=== PATIENT | female | born 1945 | race Caucasian/White ===

== ENCOUNTER 2017-10-23 13:43 | Emergency (ER) | payer MEDICARE ==
[~2017-10-23] VITALS: Ht 162.6 cm; Wt 65.0 kg
[2017-10-23 14:11] VITALS: BP 145/65; PULSE 60; RESP 16; TEMP 97.3; O2SAT 100
[2017-10-23] MEDS ORDERED: ONDANSETRON HCL 4 MG/2 ML VIAL IVP ONE (16:00)
[2017-10-23] MEDS ORDERED: MORPHINE SULFATE 4 MG/ML INJ IV PUSH ONE (16:00)
[2017-10-23] MEDS ORDERED: SODIUM CHLORIDE 0.9% FLUSH 10 ML FLUSH IV FLUSH PRN (16:00)
--- NOTE | 2017-10-23 16:37 | RADRPT ---
EXAM DATE/TIME: 10/23/2017 16:18 [facility] COMPARISON: No previous studies available for comparison. INDICATIONS : Left hand pain post fall MEDICAL HISTORY : None. SURGICAL HISTORY : None. ENCOUNTER: Initial ACUITY: 1 day PAIN SCORE: 7/10 LOCATION: Left hand FINDINGS: Three view examination of the left hand demonstrates no soft tissue swelling, dislocation, or fractur e. The carpal bones appear intact. The interphalangeal and metacarpophalangeal joints are intact. Bony mineralization is decreased. CONCLUSION: Osteopenia. No acute bony abnormality. Nirmal Nicholas MD on October 23, 2017 at 16:33 Board Certified Radiologist. This report was verified electronically.
--- NOTE | 2017-10-23 16:38 | RADRPT ---
EXAM DATE/TIME: 10/23/2017 16:14 [facility] COMPARISON: No previous studies available for comparison. INDICATIONS : Left shoulder pain MEDICAL HISTORY : None. SURGICAL HISTORY : None. ENCOUNTER: Initial ACUITY: 1 day PAIN SCORE: 9/10 LOCATION: Left shoulder FINDINGS: Two view examination of the left shoulder demonstrates a mildly displaced fracture through the mindy l neck extending into the greater tuberosity. There is a shoulder joint effusion with mild subluxatio n inferiorly. CONCLUSION: 1. Mildly displaced proximal humeral fracture as above with shoulder joint effusion and mild subluxat ion. Nirmal Nicholas MD on October 23, 2017 at 16:35 Board Certified Radiologist. This report was verified electronically.
--- NOTE | 2017-10-23 16:46 | RADRPT ---
EXAM DATE/TIME: 10/23/2017 16:34 [facility] COMPARISON: No previous studies available for comparison. INDICATIONS : Head pain due to fall. RADIATION DOSE: 34.90 CTDIvol (mGy) MEDICAL HISTORY : None SURGICAL HISTORY : None. ENCOUNTER: Initial ACUITY: 1 day PAIN SCALE: 7/10 LOCATION: Bilateral cranial TECHNIQUE: Multiple contiguous axial images were obtained of the head. Using automated exposure control and adj ustment of the mA and/or kV according to patient size, radiation dose was kept as low as reasonably a chievable to obtain optimal diagnostic quality images. DICOM format image data is available electro nically for review and comparison. FINDINGS: CEREBRUM: The ventricles are normal for age. No evidence of midline shift, mass lesion, hemorrhage or acute in farction. No extra-axial fluid collections are seen. POSTERIOR FOSSA: The cerebellum and brainstem are intact. The 4th ventricle is midline. The cerebellopontine angle i s unremarkable. EXTRACRANIAL: The visualized portion of the orbits is intact. SKULL: The calvaria is intact. No evidence of skull fracture. CONCLUSION: 1. No acute intracranial abnormalities. Previous right craniotomy. Nirmal Nicholas MD on October 23, 2017 at 16:43 Board Certified Radiologist. This report was verified electronically.
--- NOTE | 2017-10-23 17:02 | PD ---
HPI Chief Complaint: Fall Time Seen by Provider: 15:49 Travel History International Travel<30 days: No Contact w/Intl Traveler<30days: No Traveled to known affect area: No History of Present Illness HPI 72-year-old female presents to the emergency department after tripping on a curb today. She is complaining of left shoulder pain, left hand pain, right wrist pain, and forehead pain. Admits hitting her left forehead and denies loss of consciousness. Denies neck pain or back pain. Has been ambulatory since after the fall. Denies confusion, disorientation, change in mentation, slurred speech, focal deficits or weakness. Denies chest pain, shortness of breath, abdominal pain, nausea, vomiting. Denies anticoagulant therapy. Has not taken any medication or tried any treatments to alleviate her symptoms. Rates pain 2/10 while at rest. Pain 10/10 with movement of the left shoulder. Aggravated with movement. Better at rest. No known allergies. Primary care provider is in [place], [place]. History of hypertension. Has no other medical complaints. No other modifying factors or associated signs and symptoms. PFSH Past Medical History Hypertension: Yes Past Surgical History Other Surgery: Yes (brain surgery for dvt) Social History Alcohol Use: No Tobacco Use: No Substance Use: No Allergies-Medications (Allergen,Severity, Reaction): Coded Allergies: No Known Allergies (Unverified , 10/23/17) Reported Meds & Prescriptions Reported Meds & Active Scripts Active Ibuprofen 800 Mg Tab 800 Mg PO Q6HR PRN Weare (Hydrocodone-Acetaminophen) 5 Mg-325 Mg Tab 1 Tab PO Q4H PRN Reported Losartan (Losartan Potassium) 50 Mg Tab 50 Mg PO DAILY Metoprolol Tartrate 50 Mg Tab 50 Mg PO BID Levothyroxine (Levothyroxine Sodium) 125 Mcg Tab 125 Mcg PO DAILY Review of Systems Except as stated in HPI: all other systems reviewed are Neg Physical Exam Narrative GENERAL: Well-nourished, well-developed female patient, in no acute distress SKIN: Warm and dry. HEAD: Atraumatic. Normocephalic. Abrasion noted to left forehead; without erythema, edema, ecchymosis, or drainage. EYES: Pupils equal and round at 3 mm with brisk reaction. PERRLA. EOMI. No scleral icterus. No injection or drainage. No raccoon eyes. No orbital tenderness on palpation bilaterally. ENT: Mucosa pink and moist. Airway patent. Nares without nasal blood, purulent drainage. No rhinorrhea. EARS: Bilateral pinnae and external canals appear within normal limits. Bilateral tympanic membranes without erythema, dullness, hemotympanum or perforation. No otorrhea. No vickers signs. NECK: Moving freely. Trachea midline. No lymphadenopathy. Active rotation of the neck greater than 45 left and right. No midline point tenderness on palpation of the cervical spine. No obvious deformities. CHEST: No retractions or use of accessory muscles. CARDIOVASCULAR: Regular rate and rhythm. No murmur appreciated. RESPIRATORY: No accessory muscle use. Clear to auscultation. Breath sounds equal bilaterally. GASTROINTESTINAL: Rounded. MUSCULOSKELETAL: Left upper arm/shoulder with obvious deformity; minimal edema; without ecchymosis, erythema; unable to assess range of motion secondary to pain and patient guarding. Left hand with reproducible tenderness at the third MCP joint; without erythema, edema, ecchymosis; with full range of motion. Right wrist with tenderness on palpation; without obvious deformity; minimal edema; without erythema, ecchymosis. Bilateral upper extremity is supple and nontender with 2+ radial pulse and sensory intact. No clubbing. No cyanosis. No edema. BACK: No midline Point tenderness on palpation of the thoracic spine. No obvious deformities. Patient sitting up in bed at 90. NEUROLOGICAL: Awake and alert. Oriented 3. No obvious cranial nerve deficits. Motor grossly within normal limits. Normal speech. No midline drift. No ataxia. Moves all extremities. 5/5 strength to all extremities. Sensory intact. PSYCHIATRIC: Appropriate mood and affect; insight and judgment normal. Data Data Last Documented VS Vital Signs Date Time Temp Pulse Resp B/P (MAP) Pulse Ox O2 Delivery O2 Flow Rate FiO2 10/23/17 17:09 16 10/23/17 14:11 97.3 60 145/65 (91) [address] Brain W/O Iv Contrast(Rout) (10/23/17 ) Hand, Complete ([id number]) (10/23/17 15:50) Wrist, Limited (Ap&Lat) (10/23/17 15:50) Iv Access Insert/Monitor (10/23/17 15:50) Morphine Inj (Morphine Inj) (10/23/17 16:00) Ondansetron Inj (Zofran Inj) (10/23/17 16:00) Sodium Chloride 0.9% Flush (Ns Flush) (10/23/17 16:00) Shoulder, Limited(2vws) (10/23/17 15:50) Splint Or Brace Apply/Monitor (10/23/17 17:24) Sling And Swathe (10/23/17 ) Acetamin-Hydrocod 325-5 Mg (Weare 5-325 (10/23/17 18:30) Splint Or Brace Apply/Monitor (10/23/17 18:55) Sodium Chlorid 0.9% 500 Ml Inj (Ns 500 M (10/23/17 19:00) Radiology Film Requests (10/23/17 ) MDM Medical Decision Making Medical Screen Exam Complete: Yes Emergency Medical Condition: Yes Medical Record Reviewed: Yes Differential Diagnosis Humeral fracture, shoulder dislocation, facial contusion, head injury, ICH, fracture, sprain, injury, fall Narrative Course 72-year-old female with left shoulder injury, left hand injury, right wrist injury after mechanical fall today. She did hit her head and denies loss of consciousness. Denies neck pain or back pain. There is a deformity noted to the left upper arm/shoulder area. Left shoulder x-ray, left hand x-ray, right wrist x-ray, head CT, morphine, Zofran ordered. 7: Left hand x-ray concluded: osteopenia. No acute bony abnormality. Left shoulder x-ray concluded: Two view examination of the left shoulder demonstrates a mildly displaced fracture through the humeral neck extending into the greater tuberosity. There is a shoulder joint effusion with mild subluxation inferiorly. Head CT concluded: No acute intracranial abnormalities. Previous right craniotomy. Call placed to orthopedic surgeon. The patient has verbalized she does not want to be admitted and wants to go home to followup with ortho of her choice. 1725: I spoke with Dr. Richardson and he recommends sling and swathe and for the patient to call tomorrow to make an appointment for follow-up with orthopedic surgeon. 1850: Right wrist x-ray concludes: there is an impacted fracture of the distal radial metaphysis without angulation. I believe there is interarticular extension. Sugar tong splint ordered. The patient had gotten up to go to the bathroom and apparently became lightheaded and felt like she was going to faint. The patient was assisted back to bed. Vital signs are stable. I again offered for the patient to be admitted and she declined and says that she does want to go home. Dr. Blancas will evaluate the patient. 1904: Dr. Chahal evaluated the patient and discussed admission. The patient is adamant about being discharged home. Risks were discussed. Patient was instructed to call tomorrow and make an appointment for follow-up with orthopedic surgeon. Ibuprofen and Weare prescribed for home. Instructed patient to follow up with primary care provider. Patient verbalizes understanding and agreement with treatment plan. Patient is medically cleared and stable for discharge. Discussed reasons to return to the emergency department. Patient agrees with treatment plan. The patients vital signs are stable and the patient is stable for outpatient follow-up and treatment. Patient discharged home, stable and in no acute distress. Diagnosis Primary Impression: Fall Qualified Codes: W19.XXXA - Unspecified fall, initial encounter Additional Impressions: Fracture of neck of left humerus Qualified Codes: S42.212A - Unspecified displaced fracture of surgical neck of left humerus, initial encounter for closed fracture Facial abrasion Qualified Codes: S00.81XA - Abrasion of other part of head, initial encounter Head injury Qualified Codes: S09.90XA - Unspecified injury of head, initial encounter Injury of left hand Qualified Codes: S69.92XA - Unspecified injury of left wrist, hand and finger( s), initial encounter Right wrist fracture Qualified Codes: S62.101A - Fracture of unspecified carpal bone, right wrist, initial encounter for closed fracture Referrals: Orthopaedic Surgeon Primary Care Physician Patient Instructions: General Instructions, Hand Sprain (ED), Head Injury (ED) , Proximal Humerus Fracture (ED) Additional Instructions: Weare as prescribed and as needed for pain Ibuprofen as prescribed and as needed for pain Ice to affected area to reduce pain and inflammation Follow-up with orthopedic surgeon; call tomorrow and make an appointment Do not remove your splints Follow-up with primary care provider Return to the emergency department immediately with worsening of symptoms Med/Other Pt SpecificInfo: Prescription(s) given Scripts Ibuprofen (Ibuprofen) 800 Mg Tab 800 MG PO Q6HR Y for PAIN, #30 TAB 0 Refills Prov: Loly Martinez [employer] 10/23/17 Hydrocodone-Acetaminophen (Weare) 5 Mg-325 Mg Tab 1 TAB PO Q4H Y for PAIN, #18 TAB 0 Refills Prov: Loly Martinez 10/23/17 Disposition: 01 DISCHARGE HOME Condition: Stable Loly Martinez Oct 23, 2017 17:02
[2017-10-23] MEDS ORDERED: NORC5TAB PO (17:29)
[2017-10-23] MEDS ORDERED: IBUP1TAB7 PO (17:29)
[2017-10-23] MEDS ORDERED: LOSA50TA PO (17:37)
[2017-10-23] MEDS ORDERED: METO50TA PO (17:37)
[2017-10-23] MEDS ORDERED: LEVO125T4 PO (17:37)
[2017-10-23] MEDS ORDERED: ACETAMINOPHEN/HYDROcodone 325 MG/5 MG TAB PO ONE (18:30)
--- NOTE | 2017-10-23 18:38 | RADRPT ---
EXAM DATE/TIME: 10/23/2017 16:21 [facility] COMPARISON: No previous studies available for comparison. INDICATIONS : Right Wrist Pain post fall MEDICAL HISTORY : None. SURGICAL HISTORY : None. ENCOUNTER: Initial ACUITY: 1 day PAIN SCORE: 9/10 LOCATION: Right Wrist FINDINGS: There is an impacted fracture of the distal radial metaphysis without angulation. I believe there is interarticular extension. CONCLUSION: Distal radius fracture. Haider Dexter MD on October 23, 2017 at 18:36 Board Certified Radiologist. This report was verified electronically.
[2017-10-23 18:54] VITALS: BP 128/68; PULSE 68; RESP 18; O2SAT 98
[2017-10-23] MEDS ORDERED: SODIUM CHLORID 0.9% 500 ML INJ 500 ML IV ONE (19:00)
== END 2017-10-23 20:04 | disposition home or self-care (01) ==
LOC: NEPD 13:43
DX: S42.212A Unspecified displaced fracture of surgical neck of left humerus, initial encounter for closed fracture (principal); S52.501A Unspecified fracture of the lower end of right radius, initial encounter for closed fracture; S00.81XA Abrasion of other part of head, initial encounter; I10 Essential (primary) hypertension; W10.1XXA Fall (on)(from) sidewalk curb, initial encounter
CPT/HCPCS: 29125; 29240; 70450; 73030; 73100; 73130; 96374; 96375; 99284; J2270; J2405; J7040